=== PATIENT | female | born 1995 | race Caucasian/White ===

== ENCOUNTER 2018-03-03 20:17 | Emergency (ER) | payer MEDICAID ==
[~2018-03-03] VITALS: Ht 167.6 cm; Wt 96.8 kg
[2018-03-03 20:37] VITALS: BP 110/65; TEMP 96.9
[2018-03-03 22:19] LABS: HCG-QUALITATIVE URINE NEGATIVE
[2018-03-03 22:29] LABS: STREP SCREEN NEGATIVE
[2018-03-03] MEDS ORDERED: PROAIR HFA0.09 MG/AC IH (23:36)
[2018-03-03] MEDS ORDERED: PREDNISONE20 MG PO (23:36)
[2018-03-04 00:34] VITALS: PULSE 62
== END 2018-03-04 00:34 | disposition home or self-care (01) ==
LOC: COL.ER 20:17
PROVIDERS: Nurse Practitioner
DX: J20.9 Acute bronchitis, unspecified (principal); J45.909 Unspecified asthma, uncomplicated; G43.909 Migraine, unspecified, not intractable, without status migrainosus; F17.210 Nicotine dependence, cigarettes, uncomplicated; Z88.0 Allergy status to penicillin; Z88.2 Allergy status to sulfonamides
CPT/HCPCS: J1885; J7512